=== PATIENT | male | born 1970 | race African-American/Black ===

== ENCOUNTER 2022-01-30 15:26 | Inpatient (IN) | payer OTHER ==
[2022-01-30 16:57] VITALS: BMI 43.1
[2022-01-30] MEDS ORDERED: DICYCLOMINE HCL 10 MG CAPSULE PO PRN (17:26)
[2022-01-30] MEDS ORDERED: ONDANSETRON *ODT* 4 MG TABLET SL PRN (17:26)
[2022-01-30] MEDS ORDERED: ACETAMINOPHEN 325 MG TABLET (FP) PO PRN (17:26)
[2022-01-30] MEDS ORDERED: BENZOCAINE/MENTHOL (CHLORASEPTIC ) LOZENGE MM PRN (17:26)
[2022-01-30] MEDS ORDERED: MAGNESIUM HYDROX 2400MG/30ML ORAL SUSPENSION 30 ML CUP PO PRN (17:26)
[2022-01-30] MEDS ORDERED: MAGNESIUM CITRATE 300 ML BOTTLE PO PRN (17:26)
[2022-01-30] MEDS ORDERED: MAG HYDROX/AL HYDROX/SIMETH 30 ML UNIT-DOSE CUP PO PRN (17:26)
[2022-01-30] MEDS ORDERED: BISMUTH SUBSALICYLATE 524 MG/30 ML PO PRN (17:26)
[2022-01-30] MEDS ORDERED: LOPERAMIDE HCL 2 MG CAPSULE PO PRN (17:26)
[2022-01-30] MEDS ORDERED: P-EPHED 60MG/TRIPROLIDI 2.5MG TABLET PO PRN (17:26)
[2022-01-30] MEDS ORDERED: methaDONE HCL 10 MG TABLET (FOR DETOX USE ONLY) PO ONE (19:15)
[2022-01-30] MEDS: IBUPROFEN 400 MG TABLET (FP) PO PRN (20:27)
[2022-01-31] MEDS: THIAMINE HCL 100 MG TABLET (FP) PO SCH ×2 (00:09→22:35)
[2022-01-31] MEDS: IBUPROFEN 400 MG TABLET (FP) PO PRN ×2 (07:38→15:01)
[2022-01-31] MEDS: METHOCARBAMOL 500 MG TABLET PO PRN ×2 (07:38→17:46)
[2022-01-31] MEDS ORDERED: methaDONE HCL 10 MG TABLET (FOR DETOX USE ONLY) ONE (09:20)
[2022-01-31 10:04] LABS: HEMATOCRIT 37.7 % (35.4-49); HEMOGLOBIN 12.3 GM/dL (11.7-16.9); MCH 24.5 pg (25.7-33.7); MCHC 32.7 g/dl (32.0-35.9); MEAN PLT VOLUME 10.8 fl (7.5-11.1); PLATELET COUNT 124 10^3/uL (134-434); RBC 5.03 M/mm3 (4.00-5.60); RDW 15.9 % (11.9-15.9); WHITE BLOOD COUNT 4.3 K/mm3 (4.0-10.0)
[2022-01-31] MEDS: PRENATAL VITAMINS W/ FOLIC ACID TABLET (FP) PO SCH (10:26)
[2022-01-31] MEDS: hydrOXYzine PAMOATE 25 MG CAPSULE (FP) PO PRN (10:27)
[2022-01-31 11:01] LABS: ALBUMIN 3.8 g/dl (3.4-5.0); CALCIUM 9.4 mg/dL (8.5-10.1)
[2022-01-31 11:03] LABS: BLOOD UREA NITROGEN 15.2 mg/dL (7-18)
[2022-01-31 11:05] LABS: BILIRUBIN,TOTAL 0.4 mg/dL (0.2-1); TOT PROT 6.9 g/dl (6.4-8.2)
[2022-01-31 11:06] LABS: CREATININE 0.9 mg/dL (0.55-1.3)
[2022-01-31] MEDS ORDERED: amLODIPine BESYLATE 10 MG TABLET (FP) PO ONE (14:46)
[2022-01-31] MEDS: cloNIDine HCL 0.1 MG TABLET PO PRN ×2 (17:47→22:35)
[2022-01-31] MEDS: MELATONIN 5 MG TABLETS PO PRN (22:35)
[2022-02-01] MEDS: IBUPROFEN 400 MG TABLET (FP) PO PRN ×2 (05:29→17:31)
[2022-02-01] MEDS: amLODIPine BESYLATE 10 MG TABLET (FP) PO SCH (05:29)
[2022-02-01] MEDS: hydrOXYzine PAMOATE 25 MG CAPSULE (FP) PO PRN ×3 (05:29→22:17)
[2022-02-01] MEDS ORDERED: methaDONE HCL 10 MG TABLET (FOR DETOX USE ONLY) PO ONE (10:00)
[2022-02-01] MEDS: PRENATAL VITAMINS W/ FOLIC ACID TABLET (FP) PO SCH (10:24)
[2022-02-01] MEDS: METHOCARBAMOL 500 MG TABLET PO PRN ×2 (10:24→22:17)
[2022-02-01] MEDS: cloNIDine HCL 0.1 MG TABLET PO PRN (18:25)
[2022-02-01] MEDS: ACETAMINOPHEN 325 MG TABLET (FP) PO PRN (18:26)
[2022-02-01] MEDS: LISINOPRIL 10 MG TABLET PO SCH (22:17)
[2022-02-01] MEDS: THIAMINE HCL 100 MG TABLET (FP) PO SCH (22:17)
[2022-02-01] MEDS: MELATONIN 5 MG TABLETS PO PRN (22:18)
[2022-02-02] MEDS: ACETAMINOPHEN 325 MG TABLET (FP) PO PRN ×3 (05:36→22:30)
[2022-02-02] MEDS: amLODIPine BESYLATE 10 MG TABLET (FP) PO SCH (05:57)
[2022-02-02] MEDS: METHOCARBAMOL 500 MG TABLET PO PRN ×2 (07:53→12:58)
[2022-02-02] MEDS: IBUPROFEN 400 MG TABLET (FP) PO PRN ×2 (07:53→16:29)
[2022-02-02] MEDS ORDERED: methaDONE HCL 10 MG TABLET (FOR DETOX USE ONLY) ONE (09:25)
[2022-02-02] MEDS: hydrOXYzine PAMOATE 25 MG CAPSULE (FP) PO PRN ×2 (10:32→22:32)
[2022-02-02] MEDS: PRENATAL VITAMINS W/ FOLIC ACID TABLET (FP) PO SCH (10:33)
[2022-02-02] MEDS: LISINOPRIL 10 MG TABLET PO SCH ×2 (10:33→22:29)
[2022-02-02 16:10] LABS: SARS-CoV-2 NAA Not Detected (Not Detected)
[2022-02-02] MEDS: MELATONIN 5 MG TABLETS PO PRN (22:29)
[2022-02-02] MEDS: THIAMINE HCL 100 MG TABLET (FP) PO SCH (22:29)
[2022-02-03] MEDS: ACETAMINOPHEN 325 MG TABLET (FP) PO PRN ×3 (03:39→22:33)
[2022-02-03] MEDS: IBUPROFEN 400 MG TABLET (FP) PO PRN ×3 (06:41→16:46)
[2022-02-03] MEDS: amLODIPine BESYLATE 10 MG TABLET (FP) PO SCH (06:45)
[2022-02-03] MEDS ORDERED: methaDONE HCL 10 MG TABLET (FOR DETOX USE ONLY) PO ONE (10:00)
[2022-02-03] MEDS: PRENATAL VITAMINS W/ FOLIC ACID TABLET (FP) PO SCH (10:14)
[2022-02-03] MEDS: METHOCARBAMOL 500 MG TABLET PO PRN ×2 (10:15→22:31)
[2022-02-03] MEDS: hydrOXYzine PAMOATE 25 MG CAPSULE (FP) PO PRN ×2 (10:15→22:31)
[2022-02-03] MEDS: LISINOPRIL 10 MG TABLET PO SCH ×2 (10:15→22:31)
[2022-02-03] MEDS: MELATONIN 5 MG TABLETS PO PRN (22:31)
[2022-02-03] MEDS: THIAMINE HCL 100 MG TABLET (FP) PO SCH (22:31)
[2022-02-04] MEDS: IBUPROFEN 400 MG TABLET (FP) PO PRN ×2 (05:32→14:58)
[2022-02-04] MEDS: amLODIPine BESYLATE 10 MG TABLET (FP) PO SCH (07:34)
[2022-02-04] MEDS: ACETAMINOPHEN 325 MG TABLET (FP) PO PRN (10:07)
[2022-02-04] MEDS: LISINOPRIL 10 MG TABLET PO SCH (10:09)
[2022-02-04] MEDS: PRENATAL VITAMINS W/ FOLIC ACID TABLET (FP) PO SCH (10:09)
[2022-02-04 13:26] VITALS: BP 161/98; PULSE 94; TEMP 97.7
[2022-02-05] MEDS: IBUPROFEN 400 MG TABLET (FP) PO PRN (06:22)
== END 2022-02-04 15:42 | disposition other institution (70) | DRG 773 ==
LOC: YASAS 15:26 → Y6N 19:13
PROVIDERS: ADMIT Surgery; ATTEND Allergy & Immunology
PROC: HZ2ZZZZ Detoxification Services for Substance Abuse Treatment (ICD-10-PCS; principal; 2022-01-30)
DX: F11.23 Opioid dependence with withdrawal (principal); F10.230 Alcohol dependence with withdrawal, uncomplicated; F14.20 Cocaine dependence, uncomplicated; F17.210 Nicotine dependence, cigarettes, uncomplicated; I10 Essential (primary) hypertension
CPT/HCPCS: 36415; 80053; 82962; 85027; 86780; 93005; 93010; C9803-CS; J0735; U0003; U0005

== ENCOUNTER 2022-02-04 15:50 | Inpatient (IN) | payer OTHER ==
[2022-02-04] MEDS ORDERED: MAG HYDROX/AL HYDROX/SIMETH 30 ML UNIT-DOSE CUP PO PRN (16:10)
[2022-02-04] MEDS ORDERED: LOPERAMIDE HCL 2 MG CAPSULE PO PRN (16:10)
[2022-02-04] MEDS ORDERED: MAGNESIUM HYDROX 2400MG/30ML ORAL SUSPENSION 30 ML CUP PO PRN (16:10)
[2022-02-04] MEDS ORDERED: P-EPHED 60MG/TRIPROLIDI 2.5MG TABLET PO PRN (16:10)
[2022-02-04] MEDS ORDERED: MAGNESIUM CITRATE 300 ML BOTTLE PO PRN (16:10)
[2022-02-04] MEDS ORDERED: guaiFENesin 200 MG/10 ML 10 ML UNIT-DOSE CUPS PO PRN (16:10)
[2022-02-04] MEDS ORDERED: BENZOCAINE/MENTHOL (CHLORASEPTIC ) LOZENGE MM PRN (16:10)
[2022-02-04] MEDS ORDERED: NICOTINE 10 MG CARTRIDGE (INHALER) IH PRN (16:10)
[2022-02-04] MEDS ORDERED: cloNIDine HCL 0.1 MG TABLET PO ONE (19:47)
[2022-02-04] MEDS: hydrOXYzine PAMOATE 25 MG CAPSULE (FP) PO SCH ×2 (21:21→21:35)
[2022-02-04] MEDS: THIAMINE HCL 100 MG TABLET (FP) PO SCH (21:21)
[2022-02-04] MEDS: MELATONIN 5 MG TABLETS PO SCH (21:21)
[2022-02-04] MEDS: IBUPROFEN 400 MG TABLET (FP) PO PRN (21:23)
[2022-02-05] MEDS: hydrOXYzine PAMOATE 25 MG CAPSULE (FP) PO SCH ×5 (06:25→21:29)
[2022-02-05] MEDS: amLODIPine BESYLATE 10 MG TABLET (FP) PO SCH (09:53)
[2022-02-05] MEDS: HYDROCHLOROTHIAZIDE 25 MG TABLET (FP) PO SCH (09:53)
[2022-02-05] MEDS: ACETAMINOPHEN 325 MG TABLET (FP) PO PRN ×2 (09:54→17:43)
[2022-02-05] MEDS: PRENATAL VITAMINS W/ FOLIC ACID TABLET (FP) PO SCH (09:54)
[2022-02-05] MEDS: NICOTINE 7 MG/24 HOURS TOPICAL PATCH TD SCH (09:56)
[2022-02-05] MEDS ORDERED: cloNIDine HCL 0.1 MG TABLET PO ONE (15:00)
[2022-02-05] MEDS: IBUPROFEN 400 MG TABLET (FP) PO PRN ×2 (15:12→21:30)
[2022-02-05] MEDS: THIAMINE HCL 100 MG TABLET (FP) PO SCH (21:29)
[2022-02-05] MEDS: MELATONIN 5 MG TABLETS PO SCH (21:29)
[2022-02-06] MEDS: IBUPROFEN 400 MG TABLET (FP) PO PRN ×2 (05:29→21:53)
[2022-02-06] MEDS: hydrOXYzine PAMOATE 25 MG CAPSULE (FP) PO SCH ×3 (05:29→13:42)
[2022-02-06] MEDS: ACETAMINOPHEN 325 MG TABLET (FP) PO PRN (08:52)
[2022-02-06] MEDS: HYDROCHLOROTHIAZIDE 25 MG TABLET (FP) PO SCH (09:22)
[2022-02-06] MEDS: amLODIPine BESYLATE 10 MG TABLET (FP) PO SCH (09:23)
[2022-02-06] MEDS: PRENATAL VITAMINS W/ FOLIC ACID TABLET (FP) PO SCH (09:23)
[2022-02-06] MEDS: NICOTINE 7 MG/24 HOURS TOPICAL PATCH TD SCH (09:23)
[2022-02-06 13:36] VITALS: TEMP 97.3
[2022-02-06] MEDS: ONDANSETRON *ODT* 4 MG TABLET SL PRN ×2 (13:40→21:48)
[2022-02-06] MEDS ORDERED: LIDOCAINE 5% TOPICAL PATCH TP SCH (13:45)
[2022-02-06 14:32] VITALS: BP 139/81; PULSE 101
[2022-02-06] MEDS ORDERED: hydrOXYzine PAMOATE 25 MG CAPSULE (FP) PO PRN (15:07)
[2022-02-06] MEDS ORDERED: TRIMETHOBENZAMIDE HCL 200MG/2ML INJ IM ONE (15:30)
[2022-02-06] MEDS: MELATONIN 5 MG TABLETS PO SCH (21:46)
[2022-02-06] MEDS: THIAMINE HCL 100 MG TABLET (FP) PO SCH (21:46)
[2022-02-06] MEDS ORDERED: LIDOCAINE PATCH REMOVAL MC SCH (22:00)
[2022-02-07] MEDS ORDERED: TRIMETHOBENZAMIDE HCL 200MG/2ML INJ IM ONE (01:02)
== END 2022-02-07 02:40 | disposition short-term general hospital (02) | DRG 772 ==
LOC: YASAS 15:50 → Y3E 15:52
PROVIDERS: ADMIT Psychiatry & Neurology Pain Medicine; ATTEND Psychiatry & Neurology Pain Medicine
PROC: HZ42ZZZ Group Counseling for Substance Abuse Treatment, Cognitive-Behavioral (ICD-10-PCS; principal; 2022-02-04)
DX: F11.20 Opioid dependence, uncomplicated (principal); R45.851 Suicidal ideations; M54.50 Low back pain, unspecified; M25.569 Pain in unspecified knee; G89.29 Other chronic pain
CPT/HCPCS: J0735; Q0162